=== PATIENT | male | born 2000 | race Two or more races ===

== ENCOUNTER 2023-12-01 12:59 | Emergency (ER) | payer MEDICAID ==
[~2023-12-01] VITALS: Ht 167.6 cm; Wt 100.0 kg
[2023-12-01 13:54] LABS: INFLUENZA A-RTPCR,COMBO NEGATIVE (NEGATIVE); INFLUENZA B-RTPCR,COMBO NEGATIVE (NEGATIVE); RESPIRATORY SYNCYTIAL VRS-PCR NEGATIVE (NEGATIVE)
[2023-12-01 14:09] LABS: SARS COVID19 RTPCR, COMBO POSITIVE (NEGATIVE)
[2023-12-01] MEDS ORDERED: AMOX250C4 PO (14:25)
[2023-12-01 14:42] VITALS: TEMP 98
[2023-12-01 15:39] VITALS: BP 131/87; PULSE 87; RESP 18
== END 2023-12-01 15:30 | disposition home or self-care (01) ==
LOC: EMS 13:02 → EDBD 13:02 → EMS 15:30
DX: U07.1 COVID-19 (principal); H66.91 Otitis media, unspecified, right ear; F17.210 Nicotine dependence, cigarettes, uncomplicated
CPT/HCPCS: 99283; 0241U